=== PATIENT | female | born 1950 | race Caucasian/White ===

== ENCOUNTER → 2016-08-11 | Day surgery (SDC) | payer OTHER ==
[~2016-08-11] VITALS: Ht 165.1 cm; Wt 81.6 kg
[~2016-08-11] MED LIST: ASPIR 8181 MG PO; DEXILANT60 MG PO; ESTERIFIED ESTR PO; LISINOPRIL20 MG PO; MEDROXYPROGEST2.5 M1 PO; MUCINEX1200 MG PO; OMEPRAZOLE40 M1 PO; RESTASIS 0.4 M0.4 ML OPH; SIMVASTATIN20 MG PO; VENLAFAXINE HYD75 M1 PO; ZOLPIDEM TART12.5 MG PO
--- NOTE | 2016-08-11 09:19 | Operative Report ---
Operative/Inv Procedure Report Surgery Date: 08/11/16 Name of Procedure: urethral sling, cystoscopy Pre-Operative Diagnosis: stress incontinence Post-Operative Diagnosis: same Estimated Blood Loss: 200cc Surgeon/[employer] School Football Coach: SUMANTH GOMEZ MD Anesthesia: local monitored anesthesi Implants: vaginal mesh Complications: none Condition: stable Operative Indication: stress incontinence Operative/Procedure Note Note: Operative dictation on patient Allie Valle. Patient was consented for urethral sling. She was given the risks benefits alternatives of the surgery. All questions were answered. Patient was taken the operating room placed on the operating table in supine position. Timeout was performed and IV antibiotics were infused. IV sedation was started and patient was placed in the dorsolithotomy position. She was prepped and draped in standard sterile fashion. A Liang catheter was placed and the bladder was drained. This was clamped and placed in the patient's abdomen. 1% lidocaine with epinephrine was infiltrated into the anterior vaginal wall suburethrally. Incision was made and the vaginal flaps are created taking care not to injure the urethra. The Altis Sling kit was then opened and then trochars that are provided was used to place the sling the patient's left fascia was followed by the right fascia. Sling was seen to be laying flat and in a tension-free manner after being the tightened with the Prolene suture. The area was grossly irrigated with bacitracin irrigation. The incision was closed with 3-0 Vicryl running suture locking every third. There is no vaginal mesh in the vaginal fornices. The Liang catheter was removed and a cystoscopy was performed. Bladder was globally inspected and there were no abnormalities appreciated. The ureteral orifices were in slightly the abnormal position on the right side. It was more lateral and cephalad than typical. There was no mesh in the urethra or the bladder however. The sponge and needle count were correct at the end of the case. Bladder was emptied prior to removing the cystoscope. 2 inch vaginal packing impregnated with bacitracin was placed into the vaginal vault for hemostasis. Patient tolerated the procedure well. Findings: no mesh in bladder or urethra or vaginal fornices Discharge Disposition: PACU
== END ==
LOC: STS 01:59
DX: N39.3 Stress incontinence (female) (male) (principal); I10 Essential (primary) hypertension; K21.9 Gastro-esophageal reflux disease without esophagitis
CPT/HCPCS: C1771; J0131; J0690; J2250